=== PATIENT | male | born 1950 | race Caucasian/White ===

== ENCOUNTER 2025-04-09 23:45 | Inpatient (IN) | payer MEDICARE ==
[~2025-04-09] VITALS: Ht 175.3 cm; Wt 83.9 kg
[2025-04-10] MEDS ORDERED: SODIUM CHLORIDE 0.9% 1000ML 1,000 ML IV STA (00:06)
[2025-04-10 00:27] LABS: LEUKOCYTE ESTERASE ,URINE 1+ (NEGATIVE)
[2025-04-10 00:28] LABS: PROTEIN,URINE DIPSTICK 1+ (NEGATIVE); URINE UROBILINOGEN 0.2 mg/dL (0.2 - 1)
[2025-04-10 00:34] LABS: LYMPHOCYTES % 18.9 % (18.0-39.1); NEUTROPHILS % 67.1 % (38.7-80.0); RED CELL DISTRIBUTION WIDTH 12.2 % (11.7-14.4)
[2025-04-10 00:35] LABS: BASOPHILS % 0.7 % (0.0-1.0); EOSINOPHILS % 3.3 % (0.0-6.0); MONOCYTES % 9.7 % (4.4-11.3)
[2025-04-10 00:38] LABS: EPITHELIAL CELLS,URINE FEW /LPF; WBC,URINE (MAN) >50 /HPF (0-5)
[2025-04-10 00:53] LABS: EST GLOMERULAR FILTRATION RATE 55.0 ML/MIN (>=60)
[2025-04-10] MEDS: Morphine 4mg INJECTION 4 MG/ML INJ IV STA (01:20)
[2025-04-10] MEDS: ONDANSETRON HCL INJ 2MG/ML 2ML 2 MG/ML VIAL IV STA (01:20)
[2025-04-10] MEDS ORDERED: IOPAMIDOL 370 MG/ML 100 ML INFUS..BTL INJ ONE (01:27)
[2025-04-10] MEDS ORDERED: LORAZEPAM INJ 2 MG/ML VIAL IV PRN (03:00)
[2025-04-10] MEDS: KETOROLAC TROMETHAMINE 30 MG/ML VIAL IV STA (03:28)
[2025-04-10] MEDS: SODIUM CHLORIDE 0.9% 1000ML 1,000 ML IV SCH (03:28)
[2025-04-10] MEDS: NICOTINE 14 MG/EA PATCH TOP SCH (03:29)
[2025-04-10] MEDS: ONDANSETRON HCL INJ 2MG/ML 2ML 2 MG/ML VIAL IV PRN (05:25)
[2025-04-10] MEDS: Morphine 4mg INJECTION 4 MG/ML INJ IV PRN (05:25)
[2025-04-10] MEDS ORDERED: HYDRALAZINE HCL 20 MG/ML VIAL IV PRN (10:45)
[2025-04-10] MEDS ORDERED: MAGNESIUM HYDROXIDE 30 ML UDC PO PRN (10:45)
[2025-04-10] MEDS ORDERED: ACETAMINOPHEN 325 MG TAB PO PRN (10:45)
[2025-04-10 13:40] VITALS: PULSE 71; RESP 18; TEMP 98.8
[2025-04-10 13:50] VITALS: BP 142/70; PULSE 59; RESP 18; TEMP 97.9; O2SAT 98
[2025-04-10 14:00] VITALS: BP 142/70; PULSE 59; RESP 18; O2SAT 98
[2025-04-10 15:55] VITALS: BP 142/70; PULSE 59; RESP 18; TEMP 97.9; O2SAT 98
[2025-04-10] MEDS ORDERED: GABAPENTIN100 MG PO (16:06)
[2025-04-10] MEDS ORDERED: QUETIAPINE FUMA50 MG PO (16:06)
[2025-04-10] MEDS ORDERED: TAMSULOSIN PO (16:06)
[2025-04-10] MEDS ORDERED: METOPROLOL TART50 MG PO (16:06)
[2025-04-10] MEDS ORDERED: ATORVASTATIN CA10 MG PO (16:06)
[2025-04-10] MEDS ORDERED: ULTRAM 50MG50 MG PO (16:06)
[2025-04-10] MEDS ORDERED: AMLODIPINE BESY10 MG PO (16:06)
[2025-04-10] MEDS ORDERED: CIPROFLOXACIN500 MG PO (16:06)
[2025-04-10] MEDS: SENNA-S TABLET PO SCH (17:00)
[2025-04-10] MEDS ORDERED: FENTANYL CITRATE/PF 100MCG/2 ML INJ ONE (17:13)
[2025-04-10] MEDS ORDERED: LIDOCAINE HCL 2% LOCAL INJ 5 ML SDV VIAL INJ ONE (17:13)
[2025-04-10] MEDS ORDERED: PROPOFOL IV EMULSION 10 MG/ML 20 ML VIAL ONE (17:13)
[2025-04-10] MEDS ORDERED: DEXAMETHASONE SOD PHOS INJ 4 MG/ML SDV ONE (17:33)
[2025-04-10] MEDS ORDERED: ONDANSETRON HCL INJ 2MG/ML 2ML 2 MG/ML VIAL ONE (17:37)
[2025-04-10] MEDS: FENTANYL CITRATE/PF 100MCG/2 ML INJ IV ONE ×2 (18:47→18:55)
[2025-04-10] MEDS: FENTANYL CITRATE/PF 100MCG/2 ML INJ ONE (19:10)
[2025-04-10] MEDS: PHENAZOPYRIDINE HCL 100 MG TAB PO STA (19:15)
[2025-04-10] MEDS: PHENAZOPYRIDINE HCL 100 MG TAB ONE (19:48)
[2025-04-10 20:00] VITALS: BP 140/74; PULSE 72; RESP 18; TEMP 97.6; O2SAT 93
[2025-04-10] MEDS: KETOROLAC TROMETHAMINE 30 MG/ML VIAL IV PRN (20:03)
[2025-04-11] VITALS: BP 131/74; PULSE 72; RESP 18; TEMP 98; O2SAT 94
[2025-04-11 01:01] VITALS: BP 131/74; PULSE 72; RESP 18; TEMP 98; O2SAT 94
[2025-04-11 04:00] VITALS: BP 142/79; PULSE 79; RESP 18; TEMP 97.7; O2SAT 94
[2025-04-11 06:44] LABS: BASOPHILS % 0.2 % (0.0-1.0); EOSINOPHILS % 0.0 % (0.0-6.0); LYMPHOCYTES % 5.9 % (18.0-39.1); MONOCYTES % 1.6 % (4.4-11.3); NEUTROPHILS % 92.0 % (38.7-80.0); RED CELL DISTRIBUTION WIDTH 11.9 % (11.7-14.4)
[2025-04-11 07:38] LABS: EST GLOMERULAR FILTRATION RATE 73.0 ML/MIN (>=60)
[2025-04-11 08:05] VITALS: BP 145/78; PULSE 81; RESP 20; TEMP 98.2; O2SAT 95
[2025-04-11] MEDS: HYDROCODONE/APAP 10MG-325MG TAB PO PRN (10:33)
== END 2025-04-11 15:20 | disposition home or self-care (01) | DRG 669 ==
LOC: ER 23:52 → ERHOLD 04-10 02:53 → MED/SURG 04-10 14:30
PROVIDERS: ADMIT Internal Medicine; ATTEND Internal Medicine
PROC: BT141ZZ Fluoroscopy of Kidneys, Ureters and Bladder using Low Osmolar Contrast (ICD-10-PCS; 2025-04-10)
PROC: 0T9B70Z Drainage of Bladder with Drainage Device, Via Natural or Artificial Opening (ICD-10-PCS; 2025-04-10)
PROC: 0TBB8ZZ Excision of Bladder, Via Natural or Artificial Opening Endoscopic (ICD-10-PCS; principal; 2025-04-10 17:22)
DX: C67.1 Malignant neoplasm of dome of bladder (principal); N39.0 Urinary tract infection, site not specified; R31.0 Gross hematuria; I12.9 Hypertensive chronic kidney disease with stage 1 through stage 4 chronic kidney disease, or unspecified chronic kidney disease; N18.9 Chronic kidney disease, unspecified; D64.9 Anemia, unspecified; E66.9 Obesity, unspecified; Z68.27 Body mass index [BMI] 27.0-27.9, adult; Z88.8 Allergy status to other drugs, medicaments and biological substances
CPT/HCPCS: 36415; 74177; 74420; 80053; 81001; 82550; 83690; 84484; 85025; 87086; 88305; 93005; 99284; C1758; J1100; J1885; J2003; J2270; J2405; J2470; J2543; J7030; Q9967

== ENCOUNTER 2025-05-11 10:56 | Inpatient (IN) | payer MEDICARE ==
[2025-05-08 09:22] LABS: EST GLOMERULAR FILTRATION RATE 68.0 ML/MIN (>=60)
[~2025-05-11] VITALS: Ht 172.7 cm; Wt 79.9 kg
[~2025-05-11 10:56] MED LIST: AMLODIPINE BESY10 MG PO; ATORVASTATIN CA10 MG PO; CIPROFLOXACIN500 MG PO; FLOMAX0.4 MG PO; GABAPENTIN100 MG PO; METOPROLOL TART50 MG PO; QUETIAPINE FUMA50 MG PO; TAMSULOSIN PO; ULTRAM 50MG50 MG PO
[2025-05-11 12:06] LABS: BASOPHILS % 0.7 % (0.0-1.0); EOSINOPHILS % 2.1 % (0.0-6.0); LYMPHOCYTES % 13.7 % (18.0-39.1); MONOCYTES % 10.1 % (4.4-11.3); NEUTROPHILS % 73.1 % (38.7-80.0); RED CELL DISTRIBUTION WIDTH 12.5 % (11.7-14.4)
[2025-05-11] MEDS: LACTATED RINGER'S 1,000 ML ONE (12:41)
[2025-05-11] MEDS: SCOPOLAMINE 1 MG PATCH ONE (12:41)
[2025-05-11] MEDS ORDERED: ROCURONIUM BROMIDE 1 ML IV ONE ×2 (16:18→17:35)
[2025-05-11] MEDS ORDERED: PROPOFOL IV EMULSION 10 MG/ML 20 ML VIAL ONE (16:18)
[2025-05-11] MEDS ORDERED: SUCCINYLCHOLINE CHLORIDE 20 MG/ML 10ML VIAL ONE (16:18)
[2025-05-11] MEDS ORDERED: LIDOCAINE HCL 2% LOCAL INJ 5 ML SDV VIAL INJ ONE (16:18)
[2025-05-11] MEDS ORDERED: NALOXONE HCL INJ 0.4 MG/ML AMP IV PRN (17:00)
[2025-05-11] MEDS ORDERED: DIPHENHYDRAMINE HCL INJ 50 MG/ML VIAL IM PRN (17:00)
[2025-05-11] MEDS ORDERED: MORPHINE SULFATE 1 MG/ML 30ML PCA IV PRN (17:00)
[2025-05-11] MEDS ORDERED: METOCLOPRAMIDE HCL 10 MG/2ML VIAL ONE (17:09)
[2025-05-11] MEDS ORDERED: DEXAMETHASONE SOD PHOS INJ 4 MG/ML SDV ONE (17:09)
[2025-05-11] MEDS ORDERED: KETOROLAC TROMETHAMINE 30 MG/ML VIAL ONE (17:09)
[2025-05-11] MEDS: SODIUM CHLORIDE 0.9% 250ML IRRIG IR SCH (18:00)
[2025-05-11] MEDS: D5.45%NS/KCL 20MEQ 1,000 ML IV SCH (18:00)
[2025-05-11] MEDS ORDERED: BUPIVACAINE 0.5%/EPI 30 ML SDV INJ ONE (18:01)
[2025-05-11] MEDS ORDERED: SUGAMMADEX SODIUM 200 MG/2 ML VIAL IV ONE (18:01)
[2025-05-11 18:41] LABS: BASOPHILS % 0.3 % (0.0-1.0); EOSINOPHILS % 0.8 % (0.0-6.0); LYMPHOCYTES % 10.4 % (18.0-39.1); MONOCYTES % 5.1 % (4.4-11.3); NEUTROPHILS % 83.0 % (38.7-80.0); RED CELL DISTRIBUTION WIDTH 12.4 % (11.7-14.4)
[2025-05-11 18:56] LABS: EST GLOMERULAR FILTRATION RATE 93.0 ML/MIN (>=60)
[2025-05-11 19:24] VITALS: BP 134/76; PULSE 67; RESP 18; TEMP 97.5; O2SAT 97
[2025-05-11 20:00] VITALS: BP 134/76; PULSE 67; RESP 18; TEMP 97.5; O2SAT 97
[2025-05-11] MEDS: MORPHINE SULFATE 1 MG/ML 30ML PCA ONE (21:38)
[2025-05-11] MEDS: SODIUM CHLORIDE 0.9% 1000ML 1,000 ML ONE (21:38)
[2025-05-11 23:05] VITALS: BP 135/80; PULSE 66; RESP 18; TEMP 97.9; O2SAT 95
[2025-05-11] MEDS ORDERED: HYDRALAZINE HCL 20 MG/ML VIAL IV PRN (23:15)
[2025-05-12 05:37] LABS: BASOPHILS % 0.1 % (0.0-1.0); EOSINOPHILS % 0.0 % (0.0-6.0); LYMPHOCYTES % 5.7 % (18.0-39.1); MONOCYTES % 5.5 % (4.4-11.3); NEUTROPHILS % 88.2 % (38.7-80.0); RED CELL DISTRIBUTION WIDTH 12.4 % (11.7-14.4)
[2025-05-12 06:01] LABS: EST GLOMERULAR FILTRATION RATE 79.0 ML/MIN (>=60)
[2025-05-12 06:11] VITALS: BP 118/68; PULSE 58; RESP 20; TEMP 97.5; O2SAT 96
[2025-05-12 07:28] VITALS: PULSE 72; RESP 22; O2SAT 90
[2025-05-12 07:57] VITALS: BP 120/66; PULSE 72; RESP 16; TEMP 98.6; O2SAT 90
[2025-05-12] MEDS: SODIUM CHLORIDE 0.9% 1000ML 1,000 ML IV SCH (09:16)
[2025-05-12 11:26] VITALS: BP 145/75; PULSE 84; RESP 17; TEMP 97.9; O2SAT 100
[2025-05-12] MEDS: ACETAMINOPHEN 1000 MG/100 ML IV PRN (14:28)
[2025-05-12 15:41] VITALS: BP 129/69; PULSE 65; RESP 18; TEMP 98.1; O2SAT 95
[2025-05-12] MEDS ORDERED: Morphine 4mg INJECTION 4 MG/ML INJ IV PRN (15:45)
[2025-05-12] MEDS: ONDANSETRON HCL INJ 2MG/ML 2ML 2 MG/ML VIAL IV PRN (17:26)
[2025-05-12] MEDS: HYDROMORPHONE 1MG/1ML INJ IV PRN (17:27)
[2025-05-12 20:00] VITALS: BP 134/72; PULSE 72; RESP 18; TEMP 98; O2SAT 100
[2025-05-13] VITALS (14 sets, daily range): BP systolic 125–155; BP diastolic 56–88; PULSE 61–100; RESP 17–22; TEMP 97.5–98.3; O2SAT 91–96
[2025-05-13 05:38] LABS: BASOPHILS % 0.3 % (0.0-1.0); EOSINOPHILS % 0.1 % (0.0-6.0); LYMPHOCYTES % 9.1 % (18.0-39.1); MONOCYTES % 7.3 % (4.4-11.3); NEUTROPHILS % 82.7 % (38.7-80.0); RED CELL DISTRIBUTION WIDTH 12.6 % (11.7-14.4)
[2025-05-13 05:52] LABS: ALPHA FETO-PROTEIN 3.9 ng/mL (0.0-8.4)
[2025-05-13 06:02] LABS: EST GLOMERULAR FILTRATION RATE 88.0 ML/MIN (>=60)
[2025-05-13] MEDS ORDERED: LORAZEPAM INJ 2 MG/ML VIAL IV PRN (11:45)
[2025-05-13] MEDS ORDERED: LIDOCAINE HCL 2% LOCAL INJ 5 ML SDV VIAL INJ ONE (13:37)
[2025-05-13] MEDS ORDERED: ACETAMINOPHEN 1000 MG/100 ML 100 ML IV ONE (13:37)
[2025-05-13] MEDS ORDERED: PROPOFOL IV EMULSION 10 MG/ML 20 ML VIAL ONE (13:37)
[2025-05-13] MEDS ORDERED: FENTANYL CITRATE/PF 100MCG/2 ML INJ ONE (13:37)
[2025-05-13] MEDS ORDERED: SEVOFLURANE INHAL SOLN 250 ML PEN BTL ONE (13:37)
[2025-05-13] MEDS ORDERED: DEXAMETHASONE SOD PHOS INJ 4 MG/ML SDV ONE (15:00)
[2025-05-13] MEDS ORDERED: ONDANSETRON HCL INJ 2MG/ML 2ML 2 MG/ML VIAL ONE (15:00)
[2025-05-13] MEDS: FENTANYL CITRATE/PF 100MCG/2 ML INJ ONE (16:10)
[2025-05-13] MEDS: HYDROMORPHONE 1MG/1ML INJ ONE (17:33)
[2025-05-13] MEDS: HYDROCODONE/APAP 10MG-325MG TAB PO PRN (18:05)
[2025-05-14 02:49] VITALS: BP 146/69; PULSE 65; RESP 18; TEMP 97.6; O2SAT 91
[2025-05-14 05:32] LABS: BASOPHILS % 0.1 % (0.0-1.0); EOSINOPHILS % 0.0 % (0.0-6.0); LYMPHOCYTES % 7.2 % (18.0-39.1); MONOCYTES % 6.7 % (4.4-11.3); NEUTROPHILS % 85.6 % (38.7-80.0); RED CELL DISTRIBUTION WIDTH 12.6 % (11.7-14.4)
[2025-05-14 05:49] LABS: EST GLOMERULAR FILTRATION RATE 92.0 ML/MIN (>=60)
[2025-05-14 06:40] VITALS: PULSE 73
[2025-05-14 08:57] VITALS: BP 157/76; PULSE 66; RESP 20; TEMP 97.7; O2SAT 96
[2025-05-14] MEDS: METOPROLOL TARTRATE 50 MG TAB PO SCH (09:15)
[2025-05-14] MEDS ORDERED: DIAZEPAM 5 MG TAB PO PRN (09:15)
[2025-05-14 12:33] VITALS: BP 148/73; PULSE 73; RESP 20; TEMP 97.9; O2SAT 96
[2025-05-14 13:50] VITALS: PULSE 63; RESP 18; O2SAT 92
[2025-05-14] MEDS: GABAPENTIN 100 MG CAP PO SCH (15:39)
[2025-05-14] MEDS: TAMSULOSIN HCL 0.4 MG CAP PO SCH (17:02)
[2025-05-14] MEDS: SENNA-S TABLET PO SCH (17:02)
[2025-05-14 18:41] VITALS: BP 161/66; PULSE 70; RESP 18; TEMP 98.4; O2SAT 97
[2025-05-14] MEDS ORDERED: AMLODIPINE BESYLATE 10 MG TAB PO SCH (21:00)
[2025-05-15] MEDS ORDERED: PANTOPRAZOLE SOD 40 MG TABEC PO SCH (07:30)
== END 2025-05-14 20:30 | disposition home or self-care (01) | DRG 663 ==
LOC: OR 10:56 → PACU V 15:15 → MED/SURG 19:08
PROVIDERS: ADMIT Urology; ATTEND Urology
PROC: 07BC0ZX Excision of Pelvis Lymphatic, Open Approach, Diagnostic (ICD-10-PCS; 2025-05-11)
PROC: 0T9B70Z Drainage of Bladder with Drainage Device, Via Natural or Artificial Opening (ICD-10-PCS; 2025-05-11)
PROC: 0TBB0ZX Excision of Bladder, Open Approach, Diagnostic (ICD-10-PCS; principal; 2025-05-11 16:37)
PROC: 02HV33Z Insertion of Infusion Device into Superior Vena Cava, Percutaneous Approach (ICD-10-PCS; 2025-05-13)
PROC: 0JH60XZ Insertion of Tunneled Vascular Access Device into Chest Subcutaneous Tissue and Fascia, Open Approach (ICD-10-PCS; 2025-05-13)
DX: C67.1 Malignant neoplasm of dome of bladder (principal); C77.5 Secondary and unspecified malignant neoplasm of intrapelvic lymph nodes; I10 Essential (primary) hypertension; G62.9 Polyneuropathy, unspecified; N40.0 Benign prostatic hyperplasia without lower urinary tract symptoms; M19.90 Unspecified osteoarthritis, unspecified site; F32.A Depression, unspecified; F41.9 Anxiety disorder, unspecified; F43.10 Post-traumatic stress disorder, unspecified; F17.210 Nicotine dependence, cigarettes, uncomplicated
CPT/HCPCS: 36415; 71045; 71046; 76000; 80048; 80053; 82105; 82378; 82948; 83735; 84152; 85025; 86301; 86850; 86900; 88304; 88305; 94799; C1751; J0330; J0690; J1100; J1171; J1885; J2003; J2270; J2405; J2470; J2765; J7030